=== PATIENT | male | born 1955 | race Caucasian/White ===

== ENCOUNTER 2023-03-31 07:54 | Outpatient (CLI) | payer BC, MEDICARE | END 2023-03-31 07:55 | disposition home or self-care (01) | LOC: BICCT 07:54 | PROVIDERS: ATTEND Specialist | DX: N20.0 Calculus of kidney (principal); N21.0 Calculus in bladder; N28.1 Cyst of kidney, acquired; K57.30 Diverticulosis of large intestine without perforation or abscess without bleeding; N32.89 Other specified disorders of bladder; K42.9 Umbilical hernia without obstruction or gangrene; I70.90 Unspecified atherosclerosis; Z90.49 Acquired absence of other specified parts of digestive tract | CPT/HCPCS: 74176 ==

== ENCOUNTER 2023-07-27 10:37 | Outpatient (CLI) | payer BC | END 2023-07-27 10:38 | disposition home or self-care (01) | LOC: BICULT 10:37 | PROVIDERS: ATTEND Specialist | DX: N23 Unspecified renal colic (principal); N28.1 Cyst of kidney, acquired; N21.0 Calculus in bladder | CPT/HCPCS: 76770 ==